=== PATIENT | female | born 1965 | race Two or more races ===

== ENCOUNTER 2022-07-15 13:26 | Emergency (ER) | payer OTHER, SELFPAY ==
--- NOTE | ~2022-07-15 | CT_ITS ---
EXAMINATION: CT THORACIC SPINE WITHOUT CONTRAST CLINICAL INFORMATION: Status post fall. Pain. COMPARISON: None TECHNIQUE: Axial images were obtained through the thoracic spine without the administration of intravenous contrast. Coronal and sagittal reconstructed images generated. This CT examination was performed using dose optimization techniques as appropriate, variously including the following: *Automated exposure control *Adjustment of mA and/or kV according to patient size (this includes techniques or standardized protocols for targeted exams where dose is matched to indication/reason for exam; i.e. extremities or head) *Use of iterative reconstruction technique DLP: 276 mGy-cm FINDINGS: Assessment the mid thoracic spine is somewhat limited due to mild motion artifact. There is an exaggerated thoracic kyphosis. Chronic appearing anterior wedge compression fracture deformity of T7 with approximately 60% anterior vertebral body height loss. Vertebral body heights are otherwise maintained. No acute fracture line. There is bridging syndesmophyte formation throughout the thoracic spine with anterior longitudinal ligament ossification. Multilevel facet joint ankylosis and some ossification in the ligamentum flavum in the mid and lower thoracic spine. Additional costovertebral and/or costotransverse joint ankylosis at a few levels in the mid to lower thoracic spine. Incidental finding of vertebral body hemangioma at T2. No suspicious appearing osseous lesion. Visualized portion of the lungs appear clear. No lymphadenopathy in the [id number]. No paravertebral soft tissue edema/swelling identified. CT/CT thoracic spine wo IV con IMPRESSION: 1. No acute thoracic spine fracture or traumatic subluxation allowing for mild motion artifact. 2. Chronic appearing anterior wedge compression fracture deformity of T7 with approximately 60% anterior vertebral body height loss. 3. 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
--- NOTE | ~2022-07-15 | CT_ITS ---
EXAMINATION: NONCONTRAST HEAD CT NONCONTRAST CERVICAL SPINE CT INDICATION INFORMATION: Headache status post fall COMPARISON: None TECHNIQUE: Separate noncontrast CT examinations of the head and cervical spine were performed. Coronal and sagittal images were created for each examination at the technologist workstation. This CT examination was performed using dose optimization techniques as appropriate, variously including the following: *Automated exposure control *Adjustment of mA and/or kV according to patient size (this includes techniques or standardized protocols for targeted exams where dose is matched to indication/reason for exam; i.e. extremities or head) *Use of iterative reconstruction technique DLP: 792 mGy-cm FINDINGS: HEAD: No intra or extra-axial fluid collection, hemorrhage, or mass. No ventriculomegaly. No midline shift or herniation. Basal cisterns are patent. Warren-white matter differentiation is maintained. No territorial encephalomalacia. No significant volume loss. Patchy periventricular and deep white matter hypoattenuation is consistent with mild small vessel ischemic changes. No calvarial fracture or soft tissue abnormality. Mucosal thickening and mild hyperostosis of the left maxillary sinus. Large nasal septal perforation versus sequela of prior surgery. Correlate with surgical history. Mastoid air cells are normally aerated. CERVICAL SPINE: Alignment: Normal. No subluxation. Vertebra: No acute fracture. No prevertebral soft tissue swelling. Degenerative disc disease: Mild multilevel cervical spondylosis with mild endplate proliferative change. Intervertebral disc heights are maintained. There is extensive ossification of posterior longitudinal ligament at C2-C4 as well as at C6 and C7. Evidence of prior decompressive laminectomy at C3. Posterior longitudinal ligament ossification at least mild to moderate narrowing of the central spinal canal. Multilevel bilateral facet arthrosis and uncovertebral spurring in the lower cervical spine also noted. Other findings: Visualized lung apices grossly clear. Visualized thyroid gland unremarkable. No appreciable cervical lymphadenopathy in the [id number]. CT/CT cervical spine wo IV con IMPRESSION: 1. No intracranial hemorrhage or calvarial fracture. 2. No traumatic subluxation or acute cervical spine fracture. 3. Extensive ossification of the posterior longitudinal ligament in the cervical spine with at least mild to moderate spinal canal narrowing as a result. Evidence of prior C3 laminectomy.
[2022-07-15 13:31] VITALS: BP 110/62; PULSE 64; O2SAT 98
[2022-07-15 13:34] VITALS: BP 82/55; PULSE 51; RESP 18; TEMP 36.2; O2SAT 100; BMI 23.6
--- NOTE | 2022-07-15 14:03 | MHC.EDTECH ---
this senior grant writer took vitals for RN for triage assessment.
--- NOTE | 2022-07-15 15:11 | ED_ITS ---
HPI - Fall General Chief Complaint: Fall Stated Complaint: CP/NECK PAIN S/P FALL ON SIDEWALK Time Seen by Provider: 07/15/22 15:11 Source: patient, EMS and old records reviewed Mode of arrival: EMS Limitations: other History of Present Illness HPI Narrative: 56-year-old female with history of chronic pain on chronic opiates who presents to the ER for evaluation of a fall earlier today. Patient is a poor historian. She states that the wound opened her door, hit her and made her fall backwards. She fell back onto her back. She called her doctor who told her to come to the ER to get an evaluation of her brain. She arrives in a C-collar which she removed. She states she took 2 Percocet prior to coming in. She denies any other illicit drug use and became agitated when question. She difficult to understand and appears to be under the influence. Moving all extremities. complaint: fall Onset (ago): hour(s) Fall from: standing Fall witnessed: no Loss of consciousness: none Prolonged down time: no Symptoms prior to fall: none Context: tripped/slipped Location of injury: back Severity: moderate Associated symptoms (after fall): denies Related Data Allergies Allergy/AdvReac Type Severity Reaction Status Date / Time Unable to Assess Allergy Verified 07/15/22 15:21 Review of Systems Review of Systems: Yes all other systems are reviewed and are negative [facility] Social History Social History Advance Directives: No Advance Directives Information Provided: No Physical Exam Vital Signs: Vital Signs: Last Vital Signs Temp 97.2 F 07/15/22 13:34 Pulse 51 07/15/22 13:34 Resp 18 07/15/22 13:34 BP 82/55 L 07/15/22 13:34 Pulse Ox 100 07/15/22 13:34 O2 Del Method 07/15/22 13:34 BMI result Body Mass Index 23.6 Appearance: Sleeping female in the stretcher arouses to voice slow to arise. Oriented X3. No acute distress. Head: normocephalic, atraumatic, no palpable hematomas or swelling Eyes: Pupils equal, round and reactive to light. ENT: Pharynx normal. Dried white substance visualized in both nares Neck: Normal inspection. Neck supple. No midline tenderness. Normal range of motion. CVS: Normal heart rate and rhythm. Pulses normal. Respiratory: No respiratory distress. Breath sounds normal. Abdomen: Soft and nontender. +BS x4 Back: There is a moderate-sized area of hyperpigmentation verses ecchymosis over the middle of the back. The area is tender of the middle thoracic spine. No other midline tenderness. Skin: Skin warm and dry. Normal skin color. Normal skin turgor. No rashes. Extremities: No lower extremity edema. No evidence of track oh in the upper extremities. Normal range of motion of all 4 extremities. Neuro/psych: Oriented X 3. No motor deficit. No sensory deficit. Steady gait Course Course Course Narrative: 56-year-old female history of chronic pain on chronic opiates, unknown other medical history was a poor historian presents to the ER for evaluation of back pain after she fell today when a door open quickly in the wind. No LOC. She took off her C-collar and denies any neck pain. She reports thoracic back pain and has an area of question ecchymosis. She has midline tenderness. CT scans have been ordered. She appears to be nonfocal and denies any sensory deficits. Reevaluation(s) Reevaluation #1: CT scans performed and patient left against medical advice. Advised of possible risks including significant injury/ICH/fracture or Medical Decision Making Differential Diagnosis Differential Diagnoses: The differential diagnosis associated with the presentation includes Possible thoracic compression fracture, unstable spinal fracture, doubt ICH, subarachnoid, epidural hematoma, traumatic cervical sublux or, intra-abdominal injury Radiology Impression Discussion of test interpretation with radiology: I have reviewed the radiologist's reading. Radiologist Impression: CT/CT thoracic spine wo IV con IMPRESSION: 1.? No acute thoracic spine fracture or traumatic subluxation allowing for mild motion artifact. 2.? Chronic appearing anterior wedge compression fracture deformity of T7 with approximately 60% anterior vertebral body height loss. 3.? 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 Independent Historian Clinical information obtained from an independent historian. History obtained from or confirmed by: EMS Chronic Conditions Patient?s care impacted by: Other (Drug use, chronic opiate use) Critical Care Time Critical Care Time Critical Care Time: No Discharge Plan Discharge Clinical Impression: Fall Patient Disposition: Left Against Medical Advice Instructions: Back Pain (ED) Additional Instructions: It is not recommended that you leave before getting her CT scan results in the event there may be something seriously wrong like a broken bone or injury to your brain. Follow-up with your doctor If you develop new or worsening symptoms call 911 or come back to the ER for further evaluation. Stand Alone Forms: Against Medical Advice Interventions: ED Discharge Assessment Last Done: 07/15/22 16:11 Discharge Date/Time: 07/15/22 16:12
== END 2022-07-15 16:12 | disposition left against medical advice (07) ==
PROVIDERS: Emergency Provider Student in an Organized Health Care Education/Training Program
DX: S16.1XXA Strain of muscle, fascia and tendon at neck level, initial encounter (principal); M54.2 Cervicalgia; R51.9 Headache, unspecified; M54.6 Pain in thoracic spine; W01.0XXA Fall on same level from slipping, tripping and stumbling without subsequent striking against object, initial encounter; Y93.9 Activity, unspecified; Y92.9 Unspecified place or not applicable; Y99.9 Unspecified external cause status
CPT/HCPCS: 70450; 72125; 72128; 99282; 99284